=== PATIENT | male | born 1970 | race Caucasian/White ===

== ENCOUNTER 2023-06-25 14:36 | Outpatient (CLI) | payer BC, SELFPAY ==
--- NOTE | ~2023-06-25 | XR_ITS ---
Supine and upright views of the abdomen Clinical history: Left kidney stone Findings: Bowel gas pattern is nonspecific. No evidence for obstruction or free air. 1.6 cm ovoid lef t renal stone present, possibly the left renal pelvis. Osseous structures are intact. Impression: 1.6 cm left renal stone, possibly the left renal pelvis. Reviewed, dictated and finalized at [facility]. WIGS HACKLER Impression: 1.6 cm left renal stone, possibly the left renal pelvis.
== END 2023-06-25 14:37 | disposition home or self-care (01) ==
PROVIDERS: PCP Family Medicine; Visit Provider Urology
DX: N20.0 Calculus of kidney (principal)
CPT/HCPCS: 74018

== ENCOUNTER 2023-07-04 12:33 | Outpatient (CLI) | payer BC, SELFPAY ==
--- NOTE | 2023-07-04 12:45 | ECG_ITS ---
Measurements Intervals [place] Rate: 70 P: 16 KS: 161 QRS: 27 QRSD: 106 T: 26 QT: 374 QTc: 405 Interpretive Statements SINUS RHYTHM WARNING: DATA QUALITY MAY AFFECT INTERPRETATION NO PREVIOUS ECG AVAILABLE FOR COMPARISON Electronically Signed On 07-04-2023 19:18:09 [employer]BIEE LE[employer] DEVELOPER by Baylee Mooney M.D.
[2023-07-04 13:22] LABS: Anion Gap 5 mmol/L (8-16); Blood Urea Nitrogen 18 mg/dL (9-20); Calcium 9.7 mg/dL (8.4-10.2); Carbon Dioxide 31 mmol/L (22-30); Chloride 102 mmol/L (98-107); Estimated Glomerular Filt Rate > 60; Glucose 106 mg/dL (65-110); Potassium 4.1 mmol/L (3.4-5.0); Sodium 138 mmol/L (137-145)
[2023-07-04 13:23] LABS: INR 0.9; Prothrombin Time 12.5 Seconds (11.1-14.7)
[2023-07-04 13:24] LABS: Partial Thromboplastin Time 27.4 SECONDS (22.3-36.8)
== END 2023-07-04 12:34 | disposition home or self-care (01) ==
LOC: ANHSURGERY 12:37
PROVIDERS: Anesthesiology; PCP Family Medicine; Visit Provider Urology
DX: N20.0 Calculus of kidney (principal); I10 Essential (primary) hypertension; K76.0 Fatty (change of) liver, not elsewhere classified; Z01.818 Encounter for other preprocedural examination
CPT/HCPCS: 36415; 80048; 85610; 85730; 87086; 93005

== ENCOUNTER 2023-07-13 01:33 | Day surgery (SDC) | payer BC, SELFPAY ==
[2023-07-03 12:37] VITALS: BMI 31.1
--- NOTE | 2023-07-03 12:43 | PC.NURSE ---
Report to the Outpatient Waiting Room, entrance under the green pavilion located off [facility], at time 7:30 on date 07/13/23. Planned Procedure Time: 9:30. Time changes happen often and if your time is changed the preop area will call you the afternoon before. - You and your visitor will be asked to self-screen and do not enter if you have any COVID symptoms. - A mask is optional within the hospital at this time. Patients may have clear liquids (water, carbonated beverages, clear teas, apple juice) until 3 hours prior to surgery (6:30) with a maximum of 20 ounces. - No food from midnight until time of surgery Take the following medications with a SIP of water the morning of surgery: NONE DO NOT STOP ANY OF YOUR OTHER PRESCRIPTION MEDICATIONS PRIOR TO SURGERY ?EXCEPT THE FOLLOWING Medications to discontinue per physician: VITAMINS/SUPPLEMENTS Date to take last dose: 07/09/23 Please no make-up, nail yakut, hairspray, perfume, deodorant, or body powder the day of surgery. No jewelry (including any body piercings) or valuables the day of surgery, leave them at home. Please take a shower or bath the night before, or the morning of, surgery with an antibacterial soap. Wear comfortable, loose fitting clothing. - Jewelry must be removed prior to entering the operating room. Rings and piercings that are not removed may be cut off. - The hospital will not accept responsibility for valuables. - Please leave all valuables, including medications, at home the day of surgery. If you are going home after surgery, a licensed inventory associate and driver must drive you home. - NO public transportation without another adult if you receive anesthesia. - We recommend that an adult stay with you for 24 hours following discharge. - We also recommend that you do not drive, make important decision, drink alcoholic beverages, or take any drugs that were not prescribed by your health care provider for at least 24 hours after your discharge time. Follow any additional instructions given to you from your surgeon. If you or anyone in your household have experienced Covid symptoms in the past week, please notify your surgeon or the nurse liaison at the phone number below for possible testing. Telephone instructions given to PT - SHAKIRA DRIVER and asked if any additional questions and then verbalized understanding. Patient advised to call surgeon office or pre surgery nurse liaison [phone] if any additional questions.
--- NOTE | 2023-07-12 13:43 | P.PNAN_ITS ---
Anes - Initial Pre Proc Eval Procedure: Operation Date: 07/13/23 09:30 Proposed Procedures p Left Extracorporeal Shock Wave Lithotripsy - Kit Mccarthy MD Date/Time: 07/12/23 13:43 Surgeon: Kit Mccarthy MD Pre Op Diagnosis: renal stones Patient Data Age: 53 Gender: M Height: 1.83 m Weight: 104.35 kg Allergies Allergy/AdvReac Type Severity Reaction Status Date / Time No Known Allergies Allergy Verified 07/13/23 07:58 Home Medications Medication Instructions Recorded Confirmed Type coenzyme Q10 200 mg capsule 200 mg PO DAILY 07/03/23 07/03/23 History glucosamine-chondroitin 500 mg-400 2 cap PO DAILY 07/03/23 07/03/23 History mg capsule lansoprazole 30 mg capsule,delayed 30 mg PO DAILY PRN GERD 07/03/23 07/03/23 History release metoprolol succinate 50 mg 50 mg PO HS 07/03/23 07/03/23 History tablet,extended release 24 hr multivitamin 1 tablet PO DAILY 07/03/23 07/03/23 History simvastatin 20 mg tablet 20 mg PO DAILY 07/03/23 07/03/23 History lisinopril 20 mg tablet 20 mg PO DAILY 07/13/23 07/13/23 History rosuvastatin 5 mg tablet 5 mg PO DAILY 07/13/23 07/13/23 History Patient hx anesthesia problems: post op nausea/vomiting Family hx anesthesia problems: none Results Review: All pre-operative results and documents have been reviewed as part of the pre- operative evaluation. [facility] Past Medical History Medical History (Updated 07/12/23 @ 13:44 by Thierno Casas DO) Fatty liver Hyperlipidemia Hypertension BELTRAN (obstructive sleep apnea) PONV (postoperative nausea and vomiting) Social History Social History Smoking packs per day: 1 Smoking cigarettes per day: 20.0 Years smoked: 25 Smoking pack-years: 25.00 Smoking status: Former smoker Tobacco type: cigarettes Smoking end date: 05/07/14 Alcohol intake: current Alcohol use details: RARE, NOTHING RECENTLY Substance use: never Substance use type: does not use Living arrangements: with family Spiritual care concerns: No Anes - Eval Final PreProcedure Day of Procedure 07/12/23 13:43 Patient weight: obese Heart: regular rate and rhythm Lungs: clear to auscultation Airway: Mallampati scale class II Neurological: alert and oriented Last oral intake: >/= 8 hours ASA classification: III Emergent: no Anesthetic plan: proceed Anesthesia type and monitoring: general LMA and standard monitoring Results Review: All pre-operative results and documents have been reviewed as part of the pre- operative evaluation. Informed Consent: The patient's anesthetic plan and its attendant risks and benefits were discussed with the patient/family/POA. Questions were solicited and answers provided to the satisfaction of the patient/family/POA.
--- NOTE | ~2023-07-13 | XR_ITS ---
Supine and upright views of the abdomen Clinical history: Lithotripsy COMPARISON: 06/25/2023 Findings: Bowel gas pattern is nonspecific. No evidence for obstruction or free air. Stable 15 mm lef t renal stone.. Osseous structures are intact. Impression: Stable 15 mm left renal stone. Reviewed, dictated and finalized at [facility]. [employer] Impression: Stable 15 mm left renal stone.
--- NOTE | 2023-07-13 06:24 | WPDHPUPDATE1 ---
History and Physical Update Update Date/Time: 07/13/23 06:24 History and Physical has been reviewed, including an updated exam of the patient. There are NO changes in the patient's condition. Risks, benefits, and alternatives have been discussed and questions answered. Patient agrees to proceed with procedure.
[2023-07-13 07:50] VITALS: BP 117/87; PULSE 72; RESP 18; TEMP 36.2; O2SAT 98
[2023-07-13] MEDS: LACTATED RINGERS 1,000 ML 30 ML IV CONT (08:10)
[2023-07-13] MEDS: SCOPOLAMINE 1 MG PATCH 1 PATCH TRANSDERM (08:25)
[2023-07-13] MEDS: ceFAZolin 2 GM/D5W 50 ML 2 GM/50 ML BAG IVPB (09:09)
--- NOTE | 2023-07-13 09:41 | W.PM.PROC2 ---
Procedure Note - Detailed Date of Procedure 07/13/23 Pre-op Diagnosis Left renal stone Post-op Diagnosis Same Procedure Performed Left ESWL Surgeon Kit Mccarthy MD Anesthesia General Description of Procedure discussion with patient preoperatively possibly placing a left ureteral stent and he opted against. So, patient was brought to the operative suite where he was placed in the supine position on the Dornier lithotripsy table. The focal point of the lithotripter was placed at a 14-15mm left renal calculus. A total of 2500 shocks were delivered at a power setting of 4. There appeared to be good fragmentation early in the course of the procedure. The patient tolerated the procedure well and was taken to the recovery room in good condition. Complications No immediate complications Condition Stable Disposition PACU
[2023-07-13 09:59] VITALS: BP 143/94; PULSE 81; RESP 16; TEMP 36.6; O2SAT 96
[2023-07-13 10:10] VITALS: BP 138/104; PULSE 72; RESP 14; O2SAT 96
[2023-07-13 10:25] VITALS: BP 136/97; PULSE 66; RESP 14; O2SAT 93
[2023-07-13 10:33] VITALS: BP 138/99; PULSE 72; RESP 16
[2023-07-13 10:55] VITALS: BP 130/98; PULSE 66; RESP 16
== END 2023-07-13 11:10 | disposition home or self-care (01) ==
PROVIDERS: PCP Family Medicine; Visit Provider Urology
PROC: (CPT 50590; principal; 2023-07-13 09:30)
DX: N20.0 Calculus of kidney (principal); I10 Essential (primary) hypertension; E78.5 Hyperlipidemia, unspecified; G47.33 Obstructive sleep apnea (adult) (pediatric); E66.9 Obesity, unspecified; Z68.31 Body mass index [BMI] 31.0-31.9, adult; Z98.890 Other specified postprocedural states; Z87.891 Personal history of nicotine dependence; Z80.0 Family history of malignant neoplasm of digestive organs
CPT/HCPCS: 50590; 74018; A9270; J0690; J1100; J2405; J2704; J7120

== ENCOUNTER 2023-07-17 06:47 | Day surgery (SDC) | payer BC, SELFPAY ==
[2023-07-17] VITALS (13 sets, daily range): BP systolic 133–178; BP diastolic 84–107; PULSE 70–93; RESP 15–22; TEMP 36.4–36.7; O2SAT 95–100; BMI 31.1
--- NOTE | ~2023-07-17 | XR_ITS ---
EXAMINATION: XR retrograde pyelo w/stent LT DATE: 07/17/2023 15:40 CDT INDICATION: LEFT RETRO, LEFT STENT . TECHNIQUE: 4 fluoroscopic images of the abdomen and pelvis were obtained during left retrograde pyelo graphy with stent placement, performed by Raza Drake MD. I was not present during the pro cedure. Fluoroscopy exposure time was 23.3 seconds. Air Kerma 12.51 mGy. DAP [id number] mGym2. COMPARISON: CT abdomen and pelvis 07/07/2023 FINDINGS/IMPRESSION: Fluoroscopic documentation of left retrograde pyelography with stent placement. Please refer to the o perative note for complete procedural details. Reviewed, dictated and finalized at location [facility].
--- NOTE | ~2023-07-17 | CT_ITS ---
EXAMINATION: CT abdomen pelvis wo con DATE: 07/17/2023 08:42 INDICATION: Left flank pain post lithotripsy TECHNIQUE: Computed tomography (CT) of the abdomen and pelvis was performed without intravenous contr ast. Automated exposure control and iterative reconstruction technique were employed. The dose-length product was 992.67 mGy-cm. COMPARISON: [facility] dated 07/13/2023 FINDINGS: Mild discoid atelectasis lingula and dependent atelectasis in the bilateral lower lobes. Heart size i s normal. Atherosclerotic coronary artery calcification. No pericardial or pleural effusion. Diffuse hepatic steatosis. Gallbladder, spleen, pancreas, bilateral adrenal glands and right kidney are judith l. There is mild left hydroureteronephrosis extending to the ureterovesicular junction where there is an 8 x 2 mm calcification. There is an additional calcification measuring 2.2 cm in length. Increasi ng from 3 mm in diameter distally to 6 mm proximally. T-shaped significantly different from the ovoid shape of the stone on the prior radiographs suggesting these represent a collection of stone fragmen ts related to interval lithotripsy. There is an additional 7 x 2 mm crescentic calcific density consi stent with additional stone fragments versus milk of calcium in the dependent aspect of the dilated l ower pole calyx of the left kidney. Bowels including the appendix are normal. Bladder is normal. No f ree intraperitoneal gas or fluid. No pathologically enlarged abdominal or pelvic lymphadenopathy. Sev ere disc height loss with vacuum phenomena at L5-S1. Mild spondylosis and more cephalad lumbar and lo wer thoracic spine. IMPRESSION: 1. Mild left hydroureteronephrosis extending to the ureterovesicular junction where there are a coupl e 8 x 2 mm and 2.2 x 3-6 mm likely conglomeration of stone fragments 2. Diffuse hepatic steatosis. Reviewed, dictated and finalized at location L. IMPRESSION: 1. Mild left hydroureteronephrosis extending to the ureterovesicular junction w here there are a couple 8 x 2 mm and 2.2 x 3-6 mm likely conglomeration of ston e fragments 2. Diffuse hepatic steatosis.
--- NOTE | 2023-07-17 07:39 | ED.ABDPAIN ---
HPI - Abdominal Pain General Chief Complaint: Abdominal Pain Stated Complaint: abd pain Time Seen by Provider: 07/17/23 07:15 History of Present Illness HPI narrative: Patient presenting with left groin pain, had history of stones status post lithotripsy with Dr. Mccarthy 4 days ago, and since then has had worsening pain radiating to his left groin. Has been trying to take hydrocodone without much improvement but with constipation. Also some mild nausea. Related Data Home Medications Medication Instructions Recorded Confirmed coenzyme Q10 200 mg capsule 200 mg PO DAILY 07/03/23 07/13/23 glucosamine-chondroitin 500 mg-400 2 cap PO DAILY 07/03/23 07/13/23 mg capsule lansoprazole 30 mg capsule,delayed 30 mg PO DAILY PRN GERD 07/03/23 07/13/23 release multivitamin 1 tablet PO DAILY 07/03/23 07/13/23 lisinopril 20 mg tablet 20 mg PO DAILY 07/13/23 07/13/23 rosuvastatin 5 mg tablet 5 mg PO DAILY 07/13/23 07/13/23 Allergies Allergy/AdvReac Type Severity Reaction Status Date / Time No Known Allergies Allergy Verified 07/13/23 07:58 Review of Systems Review of Systems: CONST: No fever. HEENT: No sore throat C/V: No chest pain RESP: No cough GI: Nausea : Groin pain left M/S: No joint pain. SKIN: No rash. NEURO: [No headache or focal numbness or weakness] PSYCH: [No depression] [facility] Past Medical History Medical History (Updated 07/17/23 @ 10:14 by Virginia Hurst MD) Fatty liver Hyperlipidemia Hypertension BELTRAN (obstructive sleep apnea) PONV (postoperative nausea and vomiting) Social History Social History Smoking packs per day: 1 Smoking cigarettes per day: 20.0 Years smoked: 25 Smoking pack-years: 25.00 Smoking status: Former smoker Tobacco type: cigarettes Smoking end date: 05/07/14 Alcohol intake: current Alcohol use details: RARE, NOTHING RECENTLY Substance use: never Substance use type: does not use Living arrangements: with family Spiritual care concerns: No Exam Narrative: EXAMINATION OF ORGAN SYSTEMS/BODY AREAS: Constitutional: Vital signs per nursing GENERAL:[No acute distress, non-toxic appearing.] HEAD: Normal with no signs of head trauma. EYES: EOMI, conjunctiva normal ENT: Hearing grossly intact LUNGS: Nonlabored breathing. HEART: [Regular rate and rhythm] ABD: [Soft], [very mildly tender to palpation L groin] EXT: Normal range of motion SKIN: [No rashes or lesions.] NEURO: [Alert and oriented x 3. No gross focal sensory or strength deficits.] PSYCH: Normal affect Course Vital Signs Vital signs: Vital Signs Pulse Rate 93 07/17/23 06:50 Respiratory Rate 15 07/17/23 06:50 Blood Pressure 150/101 H 07/17/23 06:50 Pulse Oximetry 98 07/17/23 06:50 Oxygen Delivery Room Air 07/17/23 06:50 Pulse Rate 93 07/17/23 06:50 Respiratory Rate 15 07/17/23 06:50 Blood Pressure 150/101 H 07/17/23 06:50 Pulse Oximetry 98 07/17/23 06:50 Oxygen Delivery Room Air 07/17/23 06:50 MDM - Abdominal Pain MDM Narrative Medical decision making narrative: 1) Differential diagnosis: Stones, stone fragments, bleeding 2) Comorbidities: Hypertension 3) External notes reviewed: Urology in notes, operative note 4) History sources independently obtained from: Patient, daughter 5) Discussion of management with: urology (Dr Drake) 6) Independent interpretation of: CT A/P noncon, L hydro; labs 7) Diagnostic tests or therapies considered but not ordered: n/a 8) Social determinants of health: n/a 9) Shared decision making: Patient here with left flank pain radiating to groin, status post lithotripsy on Sunday, he is back because he is still having quite excruciating pain not well controlled with current medications. CT here confirms stone fragments 1 of which is quite large, patient feeling pain-free now after IV Toradol and fluids and zofran; labs wnl other than slightly elev CBC, I did discuss this with the urologist on-
[2023-07-17 07:51] LABS: Basophils Absolute Auto 0.1 K/mm3 (0.0-0.1); Basophils Percent Auto 0.7 % (0.2-1.2); Eosinophils Absolute Auto 0.1 K/mm3 (0-0.3); Eosinophils Percent Auto 1.3 % (0-4.4); Hematocrit 42.7 % (42.0-52.0); Hemoglobin 14.3 g/dL (14.0-18.0); Immature Granulocyte Absolute 0.04 K/mm3 (0.00-0.031); Immature Granulocyte Percent A 0.4 % (0-0.5); Lymphocytes Absolute Auto 0.99 K/mm3 (0.9-3.2); Lymphocytes Percent Auto 9.6 % (18.3-44.2); Mean Corpuscular HGB Conc 33.5 g/dl (32-36); Mean Corpuscular Hemoglobin 29.4 pg (26-34); Mean Corpuscular Volume 87.7 fl (80-100); Monocytes Percent Auto 9.5 % (2.6-8.5); Neutrophils Absolute Auto 8.1 K/mm3 (1.3-6.7); Neutrophils Percent Auto 78.5 % (45.5-73.1); Platelet Count Result 202 k/mm3 (150-375); Red Blood Count 4.87 M/mm3 (4.6-6.20); White Blood Count 10.4 K/mm3 (4.5-10.0)
[2023-07-17 07:57] LABS: Alanine Aminotransferase 25 U/L (6-50); Albumin Level 4.5 g/dL (3.5-5.1); Alkaline Phosphatase 56 U/L (38-126); Anion Gap 8 mmol/L (8-16); Aspartate Amino Transferase 22 U/L (17-59); Bilirubin,Total 1.6 mg/dL (0.2-1.3); Blood Urea Nitrogen 20 mg/dL (9-20); Calcium 9.6 mg/dL (8.4-10.2); Carbon Dioxide 23 mmol/L (22-30); Chloride 103 mmol/L (98-107); Estimated CRCL calculation 74 ml/min; Estimated Glomerular Filt Rate 58; Glucose 164 mg/dL (65-110); Potassium 3.7 mmol/L (3.4-5.0); Sodium 134 mmol/L (137-145)
[2023-07-17] MEDS: ONDANSETRON INJ 4 MG/2 ML VIAL IV PUSH (08:12)
[2023-07-17] MEDS: KETOROLAC 15 MG/ML VIAL (*BKC) IV PUSH (08:13)
[2023-07-17] MEDS: LACTATED RINGERS 1,000 ML 999 ML IV CONT (08:14)
--- NOTE | 2023-07-17 10:18 | WPDURCON ---
Assessment and Plan Assessment and plan (1) Left ureteral stone: Code(s): N20.1 - Calculus of ureter Status: Acute Assessment and Plan: S/p left ESWL of 1.4 cm left renal stone. He now has conglomeration of stones at left UVJ with intractable pain and nausea. Will proceed with cystoscopy, left ureteroscopy, left retrograde pyelogram, possible stone extraction, possible laser lithotripsy, and left ureteral stent placement this afternoon with Dr. Drake. Discussed procedure in details and reviewed risks. Understands temporary nature of stent and need for appropriate outpatient follow up. Continue NPO diet. (2) Hydroureteronephrosis: Code(s): N13.30 - Unspecified hydronephrosis Status: Acute Assessment and Plan: Mild left hydroureteronephrosis secondary to above. Plan as above. Urology Consult Note HPI Date Seen: 07/17/23 Primary Care Provider: Keely Friend, Consult Narrative Narrative: Tony Chacon is a 53 year old male with a history of left renal stone who underwent left ESWL on 07/13/[address] Mccarthy. He was doing well postoperatively from a pain standpoint, though he did endorse poor appetite, dysuria, and urgency. Unfortunately this morning his pain became more severe and he presented to the ER for evaluation. On arrival, he had a CT of the abd/pelvis completed which showed mild left hydroureteronephrosis with conglomeration of stones at the left UVJ. His pain was improved with analgesics though he was concerned about his ability to manage his pain at home and had concerns of persistent nausea. Offered continued trial of passage, outpatient stent placement with Dr. Mccarthy later this week, or surgical intervention today. Given his persistent pain and nausea, he will undergo left ureteroscopy with possible laser lithotripsy, stone extraction, and left ureteral stent placement today. His WBC is 10.6. Creatinine 1.3. His vital signs are stable. He last ate yesterday evening. Review of Systems Review of Systems: All systems reviewed & are unremarkable except as noted in HPI and below [facility] Past Medical History Medical History (Updated 07/17/23 @ 10:25 by Amy Sawant PA-C) Fatty liver Hyperlipidemia Hypertension BELTRAN (obstructive sleep apnea) PONV (postoperative nausea and vomiting) Social History Social History Smoking packs per day: 1 Smoking cigarettes per day: 20.0 Years smoked: 25 Smoking pack-years: 25.00 Smoking status: Former smoker Tobacco type: cigarettes Smoking end date: 05/07/14 Alcohol intake: current Alcohol use details: RARE, NOTHING RECENTLY Substance use: never Substance use type: does not use Living arrangements: with family Spiritual care concerns: No Meds Home Medications and Allergies Home Medications Medication Instructions Recorded Confirmed Type coenzyme Q10 200 mg capsule 200 mg PO DAILY 07/03/23 07/13/23 History glucosamine-chondroitin 500 mg-400 2 cap PO DAILY 07/03/23 07/13/23 History mg capsule lansoprazole 30 mg capsule,delayed 30 mg PO DAILY PRN GERD 07/03/23 07/13/23 History release multivitamin 1 tablet PO DAILY 07/03/23 07/13/23 History hydrocodone 5 mg-acetaminophen 325 1 - 2 tablet PO Q6H PRN pain #24 07/13/23 Rx mg tablet tabs lisinopril 20 mg tablet 20 mg PO DAILY 07/13/23 07/13/23 History rosuvastatin 5 mg tablet 5 mg PO DAILY 07/13/23 07/13/23 History Allergies Allergy/AdvReac Type Severity Reaction Status Date / Time No Known Allergies Allergy Verified 07/13/23 07:58 Vital Signs Vital Signs - 24 hr 07/17/23 06:50 Pulse Rate 93 Respiratory Rate 15 Blood Pressure 150/101 H Pulse Oximetry 98 Oxygen Delivery Room Air Exam Narrative: General: Awake, alert, comfortable, no acute distress HEENT: Normocephalic, atraumatic, sclerae anicteric Respiratory: Normal respiratory effort, no accessory muscle use Abdomen: Nondistended, soft, nontender Sk
[2023-07-17] MEDS: LACTATED RINGERS 1,000 ML 30 ML IV CONT (12:00)
--- NOTE | 2023-07-17 13:06 | SUR.PREOP ---
07/17/23: PT STATES NO CHANGES IN PMHx OR MEDS SINCE PREOP INTERVIEW ON 07/13/23 EXCEPT NOW S/P L ESWL AND CURRENT POST ESWL LT URETERAL OBSTRUCTION WITH HYDRONEPHROSIS. CURRENTLY NO PAIN/NAUSEA. CONSENT SIGNED TO FOR URGENT PROCEDURE.
--- NOTE | 2023-07-17 14:03 | WPDHPUPDATE1 ---
History and Physical Update Update Date/Time: 07/17/23 14:03 History and Physical has been reviewed, including an updated exam of the patient. There are NO changes in the patient's condition. Risks, benefits, and alternatives have been discussed and questions answered. Patient agrees to proceed with procedure. Proceed with cystoscopy, left retrograde pyelogram, left ureteroscopy with laser, stone extraction, left ureteral stent placement
--- NOTE | 2023-07-17 14:11 | WPDANESEPPF ---
Anes - Initial Pre Proc Eval Procedure: Operation Date: 07/17/23 15:15 Proposed Procedures p Cystoscopy, Left Ureteroscopy, Possible Left Retrograde Pyelogram, Possible Left Stone Extraction, Possible Left Stent Placement, Possible Holmium Laser Procedure - Raza Drake MD Date/Time: 07/17/23 14:11 Surgeon: Raza Drake MD Pre Op Diagnosis: abd pain Patient Data Age: 53 Gender: M Height: 1.83 m Weight: 104.33 kg Last Vital Signs Temp 36.4 C 07/17/23 13:00 Pulse 70 07/17/23 13:00 Resp 18 07/17/23 13:00 BP 160/84 H 07/17/23 13:00 Pulse Ox 98 07/17/23 13:00 O2 Del Method Room Air 07/17/23 13:00 Allergies Allergy/AdvReac Type Severity Reaction Status Date / Time No Known Allergies Allergy Verified 07/17/23 12:57 Home Medications Medication Instructions Recorded Confirmed Type coenzyme Q10 200 mg capsule 200 mg PO DAILY 07/03/23 07/17/23 History glucosamine-chondroitin 500 mg-400 2 cap PO DAILY 07/03/23 07/17/23 History mg capsule lansoprazole 30 mg capsule,delayed 30 mg PO DAILY PRN GERD 07/03/23 07/17/23 History release multivitamin 1 tablet PO DAILY 07/03/23 07/17/23 History hydrocodone 5 mg-acetaminophen 325 1 - 2 tablet PO Q6H PRN pain #24 07/13/23 07/17/23 Rx mg tablet tabs lisinopril 20 mg tablet 20 mg PO DAILY 07/13/23 07/17/23 History rosuvastatin 5 mg tablet 5 mg PO DAILY 07/13/23 07/17/23 History Laboratory Tests 07/17/23 07/17/23 07:36 07:37 WBC 10.4 H K/mm3 (4.5-10.0) RBC 4.87 M/mm3 (4.6-6.20) Hgb 14.3 g/dL (14.0-18.0) Hct 42.7 % (42.0-52.0) MCV 87.7 fl (80-100) MCH 29.4 pg (26-34) MCHC 33.5 g/dl (32-36) RDW 13.0 % (11.5-14.5) Plt Count 202 k/mm3 (150-375) MPV 10.0 fl (7.4-10.4) Immature Gran % (Auto) 0.4 % (0-0.5) Neut % (Auto) 78.5 H % (45.5-73.1) Lymph % (Auto) 9.6 L % (18.3-44.2) [place] % (Auto) 9.5 H % (2.6-8.5) Eos % (Auto) 1.3 % (0-4.4) Baso % (Auto) 0.7 % (0.2-1.2) Lymph # (Auto) 0.99 K/mm3 (0.9-3.2) [place] # (Auto) 1.0 H K/mm3 (0.1-0.6) Eos # (Auto) 0.1 K/mm3 (0-0.3) Baso # (Auto) 0.1 K/mm3 (0.0-0.1) Abs Immat Gran (auto) 0.04 H K/mm3 (0.00-0.031) Absolute Neuts (auto) 8.1 H K/mm3 (1.3-6.7) Absolute Nucleated RBC 0.0 K/mm3 (0.0-0.012) Nucleated RBC % 0.0 % (0.0-0.2) Sodium 134 L mmol/L (137-145) Potassium 3.7 mmol/L (3.4-5.0) Chloride 103 mmol/L (98-107) Carbon Dioxide 23 mmol/L (22-30) Anion Gap 8 mmol/L (8-16) BUN 20 mg/dL (9-20) Creatinine 1.30 mg/dL (0.7-1.3) Estim Creat Clear Calc 74 ml/min Estimated GFR 58 L (59 - ) Glucose 164 H mg/dL (65-110) Calcium 9.6 mg/dL (8.4-10.2) Total Bilirubin 1.6 H mg/dL (0.2-1.3) AST 22 U/L (17-59) ALT 25 U/L (6-50) Alkaline Phosphatase 56 U/L (38-126) Total Protein 8.0 g/dL (6.3-8.2) Albumin 4.5 g/dL (3.5-5.1) Patient hx anesthesia problems: none Family hx anesthesia problems: none Results Review: All pre-operative results and documents have been reviewed as part of the pre-operative evaluation. [facility] Past Medical History Medical History (Updated 07/17/23 @ 10:25 by Amy Sawant PA-C) Fatty liver Hyperlipidemia Hypertension BELTRAN (obstructive sleep apnea) PONV (postoperative nausea and vomiting) Social History Social History Smoking packs per day: 1 Smoking cigarettes per day: 20.0 Years smoked: 25 Smoking pack-years: 25.00 Smoking status: Former smoker Tobacco type: cigarettes Smoking end date: 05/07/14 Alcohol intake: current Alcohol use details: RARE, NOTHING RECENTLY Substance use: never Substance use type: does not use Living arrangements: with family Spiritual care co
[2023-07-17] MEDS: SCOPOLAMINE 1 MG PATCH 1 PATCH TRANSDERM (14:27)
[2023-07-17] MEDS: ceFAZolin 2 GM/D5W 50 ML 2 GM/50 ML BAG IVPB (15:35)
[2023-07-17] MEDS: LIDOCAINE HCL 2% GEL UROJET 10 ML PKG MUCOUS MEM (16:09)
--- NOTE | 2023-07-17 16:15 | P.OP_ITS ---
Procedure Note - Detailed Date of Procedure 07/17/23 Pre-op Diagnosis Left distal ureteral calculi with hydronephrosis Post-op Diagnosis Same Procedure Performed Cystoscopy, left retrograde pyelogram, left ureteroscopy with laser, stone e xtraction, left ureteral stent placement 4.8 Icelandic contour Surgeon Raza Drake MD Anesthesia General Description of Procedure Patient was taken to the operative suite correctly identified. Once anesthesia was obtained was placed in dorsal lithotomy position and prepped draped usual sterile fashion. Twenty-two Icelandic scope was inserted the bladder. He has some stones at the UVJ on the left. Sensor wire was manipulated past the stones. There was not much room in to place a basket and thus a used a 200 micron fiber to fragment the stones. Escape basket was then used to clear the distal ureter. Some of the dust was too small to retrieve. Pyelogram was then performed confirm placement of ureteral stent. 4.8 Icelandic contour stent was then placed with the proximal end coiled in the renal pelvis and the distal in the bladder. Bladder was drained. 2% viscous lidocaine was inserted into the urethra patient is taken recovery stable condition. Patient will be discharged home. He has a follow-up appointment with Dr. Mccarthy later in the week. This completes dictation. Please send a copy of op note to my office. Estimated Blood Loss 0 Drains Yes Packing No Pathology Yes Complications No immediate complications Condition Stable Disposition PACU
== END 2023-07-17 18:00 | disposition home or self-care (01) ==
LOC: ANHED 10:20 → ANHSURGERY 12:04
PROVIDERS: Emergency Provider Emergency Medicine; PCP Family Medicine; Visit Provider Urology
PROC: (CPT 52352; principal; 2023-07-17 15:15)
DX: N13.2 Hydronephrosis with renal and ureteral calculous obstruction (principal); I10 Essential (primary) hypertension; E78.5 Hyperlipidemia, unspecified; K76.0 Fatty (change of) liver, not elsewhere classified; G47.33 Obstructive sleep apnea (adult) (pediatric); Z87.891 Personal history of nicotine dependence
CPT/HCPCS: 52356; 36415; 74176; 74420; 80053; 82365; 85025; 88300; 96361; 96374; 96375; 99285; A9270; C1758; C1769; C2617; J0690; J1100; J1885; J2250; J2405; J2704; J3010; J7120; Q9966

== ENCOUNTER 2024-03-04 07:25 | Outpatient (CLI) | payer BC, SELFPAY ==
--- NOTE | ~2024-03-04 | XR_ITS ---
EXAMINATION: XR abdomen/[facility] 1V DATE: 03/04/2024 07:53 INDICATION: Kidney stone, left-sided. TECHNIQUE: A supine view of the abdomen on 2 radiographs was obtained. COMPARISON: CT abdomen and pelvis 07/17/2023 FINDINGS: There are no dilated loops of bowel. There is a small volume of stool in the colon. There i s no visible urolithiasis. IMPRESSION: 1. No visible urolithiasis. Reviewed, dictated and finalized at location B. IMPRESSION: 1. No visible urolithiasis.
== END 2024-03-04 07:26 | disposition home or self-care (01) ==
PROVIDERS: PCP Family Medicine; Visit Provider Urology
DX: N20.0 Calculus of kidney (principal)
CPT/HCPCS: 74018